=== PATIENT | male | born 1990 | race Caucasian/White ===

== ENCOUNTER 2018-09-28 15:14 | Emergency (ER) | payer OTHER, BC ==
--- NOTE | 2018-09-28 15:35 | EDM.PDOC ---
ED HPI GENERAL MEDICAL PROBLEM - General Chief Complaint: ENT Problem Stated Complaint: LEFT EAR PAIN Time Seen by Provider: 09/28/18 15:22 Source of Information: Reports: Patient History Limitations: Reports: No Limitations - History of Present Illness INITIAL COMMENTS - FREE TEXT/NARRATIVE: This patient is a 28 year old male that presents to the ER. Patient reports that he woke up this morning with left ear pain. Patient reports he had an ear infection about 1 month ago and tx wtih abx then. He reports that he does work with ear plugs in ears. Patient denies sheldon, dizziness, n, v, d, f, congestion, drainage, sore throat, cp, soa, cough, ear drainage. Onset: Today Onset Date: 09/28/18 Onset Time: 08:00 Location: Reports: Other (left ear) Quality: Reports: Ache Severity: Mild Improves with: Reports: None Worsens with: Reports: None Associated Symptoms: Reports: No Other Symptoms. Denies: Confusion, Chest Pain , Cough, cough w sputum, Diaphoresis, Fever/Chills, Headaches, Loss of Appetite , Malaise, Nausea/Vomiting, Rash, Seizure, Shortness of Breath, Syncope, Weakness Left Ear Pain Score (Numeric/FACES): 8 - Related Data Allergies Allergy/AdvReac Type Severity Reaction Status Date / Time haloperidol [From Haldol] Allergy Cannot Verified 09/28/18 15:25 Remember Home Meds: Home Meds . [No Known Home Meds] 09/28/18 [History] ED ROS ENT - Review of Systems Review Of Systems: See Below Constitutional: Reports: No Symptoms HEENT: Reports: Ear Pain (left). Denies: Dental Pain, Ear Discharge, Eye Discharge, Eye Pain, Glasses, Hearing Loss, Nosebleed, Nose Pain, Rhinitis, Sinus Problem, Throat Pain, Throat Swelling, Vertigo, Vision Change Respiratory: Reports: No Symptoms Cardiovascular: Reports: No Symptoms Endocrine: Reports: No Symptoms GI/Abdominal: Reports: No Symptoms : Reports: No Symptoms Musculoskeletal: Reports: No Symptoms Skin: Reports: No Symptoms Neurological: Reports: No Symptoms Psychiatric: Reports: No Symptoms Hematologic/Lymphatic: Reports: No Symptoms Immunologic: Reports: No Symptoms ED EXAM, ENT - Physical Exam Exam: See Below Exam Limited By: No Limitations General Appearance: Alert, WD/WN, No Apparent Distress Eye Exam: Bilateral Eye: Normal Inspection, PERRL Ears: Normal External Exam, Normal Canal, Hearing Grossly Normal, TM Bulging ( left), TM Erythema (left). No: Hearing Loss, Auricular Erythema, Auricular Tenderness, Mastoid Swelling, Mastoid Tenderness, Canal Blood, Canal Discharge, Canal Swelling, TM Blood, Cerumen Impaction Nose: Normal Inspection, Normal Mucousa, No Blood Mouth/Throat: Normal Inspection, Normal Gums, Normal Lips, Normal Oropharynx, Normal Teeth Head: Atraumatic, Normocephalic Neck: Normal Inspection, Supple, Non-Tender, Full Range of Motion Respiratory/Chest: No Respiratory Distress, Lungs Clear, Normal Breath Sounds, No Accessory Muscle Use Cardiovascular: Normal Peripheral Pulses, Regular Rate, Rhythm, No Edema, No Gallop, No JVD, No Murmur, No Rub Back: Normal Inspection, Full Range of Motion Extremities: Normal Inspection, Normal Range of Motion, Non-Tender, No Pedal Edema, Normal Capillary Refill Neurological: Alert, Oriented Psychiatric: Normal Affect, Normal Mood Skin: Warm, Dry, Intact, Normal Color, No Rash Lymphatic: No Adenopathy Course - Vital Signs Last Recorded V/S: Last Vital Signs Temp 98.8 F 09/28/18 15:21 Pulse 95 09/28/18 15:21 Resp 20 09/28/18 15:21 BP 139/69 09/28/18 15:21 Pulse Ox 98 09/28/18 15:21 - Orders/Labs/Meds Orders: Active Orders 24 hr Category Date Time Status Amoxicillin/Clavulanate K [Augmentin 875 MG/125 MG] Med 09/28/18 17:30 Active 1 tab PO BIDMEALS Medication Orders Amoxicillin/Clavulanate Potassium (Augmentin 875 Mg/125 Mg) 1 tab PO BIDMEALS [facility] Meds: Medications Generic Name Dose Route Start Last Admin Trade Name Freq PRN Reason Stop Dose Admin Amoxicillin/Clavulanate Potassium 1 tab 09/28/18 17:30 Augmentin 875 Mg/125 Mg PO BIDMEALS [facility] Departure - Departure Time of Disposition: 15:28 Disposition: Home, Self-Care 01 Condition: Good Clinical Impression: Otitis media Qualifiers: Otitis media type: suppurative Chronicity: acute Laterality: left Recurrence: recurrent Spontaneous tympanic membrane rupture: without spontaneous rupture Qualified Code(s): H66.005 - Acute suppurative otitis media without spontaneous rupture of ear drum, recurrent, left ear - Discharge Information *PRESCRIPTION DRUG MONITORING PROGRAM REVIEWED*: No *COPY OF PRESCRIPTION DRUG MONITORING REPORT IN PATIENT [place]: No Instructions: Otitis Media, Adult, [id number] Forms: ED Department Discharge Additional Instructions: Followup with your primary care provider as needed Return to the ER for worsening of condition or any emergent concerns Use clean earplugs: Contaminated/dirty earplugs can cause ear infections Augmentin 875mg 1 pill twice a day for 10 days #20 no refill - My Orders Last 24 Hours: My Active Orders 09/28/18 17:30 Amoxicillin/Clavulanate K [Augmentin 875 MG/125 MG] 1 tab PO BIDMEALS - Assessment/Plan Last 24 Hours: My Active Orders 09/28/18 17:30 Amoxicillin/Clavulanate K [Augmentin 875 MG/125 MG] 1 tab PO BIDMEALS Plan: PLEASE SEE RN NOTE FOR PFSH.
[2018-09-28] MEDS ORDERED: Amoxicillin/Clavulanate K 875-125 MG Tab PO SCH (17:30)
== END 2018-09-28 15:50 | disposition home or self-care (01) ==
LOC: CC.ED 15:14
DX: H66.005 Acute suppurative otitis media without spontaneous rupture of ear drum, recurrent, left ear (principal); Z88.8 Allergy status to other drugs, medicaments and biological substances
CPT/HCPCS: 99282; A9270